=== PATIENT | male | born 1955 | race Caucasian/White ===

== ENCOUNTER 2018-03-17 10:14 | Inpatient (IN) | payer MEDICARE ==
[~2018-03-17] VITALS: Ht 175.3 cm; Wt 75.0 kg
[~2018-03-17 10:14] MED LIST: AXIRON30 MG/1.5 IM; AXIRON30 MG/1.5 TP; CALTRATE-600600 MG PO; CYCLOBENZAPRINE10 MG PO; DILAUDID2 MG PO; XANAX0.5 MG PO; ZOFRAN4 MG PO
[2018-03-17 11:50] LABS: APPEARANCE CLEAR (CLEAR); BILIRUBIN NEGATIVE (NEGATIVE); COLOR STRAW (YELLOW); GLUCOSE NEGATIVE (NEGATIVE); KETONE NEGATIVE (NEGATIVE); NITRITE POSITIVE (NEGATIVE); PROTEIN NEGATIVE (NEGATIVE); UROBILINOGEN NORMAL (NORMAL)
[2018-03-17 11:51] LABS: BASOPHILS 0.1 % (0-2); EOSINOPHILS 0 % (0-7); HEMATOCRIT 51.5 % (42.0-54.0); HEMOGLOBIN 17.9 g/dL (13.5-17.5); IMMATURE GRANULOCYTES 0.1 % (0-5); LYMPHOCYTES 4.1 % (15-50); MCHC 34.8 g/dL (31.0-37.0); MCV 92.1 fL (80.0-100.0); MEAN PLATELET VOLUME 10.5 fL (7.4-10.4); MONOCYTES 3.9 % (2-11); NEUTROPHILS 91.8 % (40-80); PLATELET COUNT 189 10x3/uL (130-400); RBC 5.59 10x6/uL (4.20-6.10); RDW 14.3 % (11.5-14.5); WBC 14.1 10x3/uL (4.8-10.8)
[2018-03-17 11:52] LABS: BACTERIA MODERATE /hpf (NONE SEEN); EPITHELIAL CELLS 0-5 /hpf (0-5); RED CELLS - URINE 0-5 /hpf (0-5)
[2018-03-17 12:06] LABS: ALBUMIN 4.2 g/dL (3.4-5.0); ALKALINE PHOSPHATASE 55 U/L (46-116); ALT (SGPT) 26 U/L (10-68); BILIRUBIN - TOTAL 1.68 mg/dL (0.2-1.3); CALC OSMOLALITY 279 mosm/kg (275-300); CALCIUM 9.5 mg/dL (8.5-10.1); CHLORIDE - SERUM 103 mmol/L (98-107); CREATININE - SERUM 1.1 mg/dL (0.6-1.3); GLUCOSE 116 mg/dL (74-106); POTASSIUM - SERUM 3.6 mmol/L (3.5-5.1); PROTEIN - SERUM 7.4 g/dL (6.4-8.2); SODIUM 139 mmol/L (136-145); UREA NITROGEN 16 mg/dL (7-18); eGFR NON AFRICAN AMERICAN 72 mL/min (90-120)
[2018-03-17 12:10] LABS: AMYLASE - SERUM 65 U/L (25-115); LIPASE 146 U/L (73-393)
[2018-03-17 12:11] LABS: TROPONIN-I < 0.017 ng/mL (0.000-0.060)
[2018-03-17 15:44] VITALS: BP 116/74
[2018-03-17 16:05] VITALS: Ht 175.3 cm; Wt 75.0 kg
--- NOTE | 2018-03-17 19:35 | NUR ---
BLADDER SCAN PERFORMED ON PATIENT DUE TO COMPLAINT OF NEEDING TO URINATE AND UNABLE TO PASS ANYTHING EXCEPT SMALL DROPS OF BLOOD. DR SENIOR CONTACTED, ORDER RECEIVED TO PERFORM INDWELLING URINARY CATHETERIZATION AND HAVE PATIENT RETURN TO OFFICE NEXT WEEK TO REMOVE
--- NOTE | 2018-03-17 20:25 | NUR ---
18 SYRIAC URINARY CATHETER INSERTED WITHOUT DIFFICULTY. ASSISTANCE WAS PROVIDED BY DEISY SANTANA RN TO ENSURE THAT URETERAL STENT STRING REMAINS IN PLACE. APPROX 350 CC DARK PINK URINE DRAINING IN BAG. NO CLOTS SEEN.
--- NOTE | 2018-03-17 20:55 | NUR ---
PATIENT DISCHARGED HOME VIA WHEELCHAIR TO PRIVATE VEHICLE WITH FATHER
--- NOTE | 2018-03-20 11:27 | OP ---
PATIENT NAME: ELIZABETH ALVA MEDICAL RECORD: [id number] :53 LOCATION:[facility]- ADMISSION DATE:03/17/18 SURGEON: PRESTON SENIOR MD DATE OF OPERATION: 03/17/2018 SURGEON: Preston Senior MD ANESTHESIA: General anesthesia by Cipriano Roth CRNA DIAGNOSIS: A 6-mm left distal ureteral stone. PROCEDURES: Cystoscopy, left retrograde pyelogram, left ureteroscopy and stone extraction, left ureteral stent insertion 6-Filipino x 26 cm with string attached. FINDINGS: Radiolucent renal stones. ESTIMATED BLOOD LOSS: Minimal. SPECIMEN: Left ureteral stone. CLINICAL HISTORY: This is a 62-year-old male with a previous history of kidney stones. He had acute left flank pain last night and today he found the pain to be intolerable and he came to the Emergency Room. A CT scan shows a 6-mm left distal ureteral stone causing proximal hydroureteronephrosis. There is also bilateral punctate nonobstructive renal stones. Finally, there is a fairly large right renal stone. He comes now to have left ureteroscopy and stone extraction. HE HAS NUMEROUS ALLERGIES INCLUDING TO IVP DYE. He was given Levaquin IV lactation nurse to the OR. DESCRIPTION OF PROCEDURE: The patient was given induction of general anesthesia. He was then placed into dorsal lithotomy position and prepped and draped. Fluoroscopy did not reveal any visible radiodense stones. Therefore, I performed cystoscopy using a 21-Filipino cystoscope with 30-degree lens. There are no urethral strictures. Lateral lobes are not obstructive. He does have somewhat elevated bladder neck. Going into the bladder, he has single ureteral orifices bilaterally. No bladder tumors were seen. The left ureteral orifice was intubated with a 5-Filipino open-ended ureteral catheter. Diluted contrast was injected for the retrograde pyelogram. We saw the stone as a filling defect in the distal ureter. There is also a phlebolith in the pelvis, which is lateral to the ureter. A Sensor wire was then placed through the lumen of the ureteral catheter up into the renal pelvis. The ureteral catheter was then removed and we dilated the ureteral orifice with an 18-Filipino x 4-cm balloon up to 20 atmospheres of pressure. The pressure was maintained for only a few seconds and then the balloon was deflated. We then went in with the rigid ureteroscope and we identified the stone. The stone was trapped within a 4-wire 0-tip basket. We could not get the stone past the distal ureteral edema in the intramural ureter. In fact, the basket broke off in the attempts to do so. We then redilated the ureteral orifice and the distal ureter up to the point of the stone with the 18-Filipino basket and tried again and again we could not get past the tissue edema. Finally, I used a 21-Filipino balloon and dilated the ureter distal to the stone. Finally, a new 4-wire 0-tip basket was able to trap the stone and the retained basket fragment and we were able to remove everything in one shot. Repeat ureteroscopy showed no further stones. I went up to the mid ureter to check. We then removed the ureteroscope. The wire was backloaded into the cystoscope. Over the wire through the scope, we inserted the 6-Filipino OPERATIVE REPORT [id number] ELIZABETH ALVA x 26-cm ureteral stent. The bladder was then emptied through the scope. The scope was removed entirely. The string on the distal end of the scope was maintained. It hangs out of the urethra. It was tied to itself in a knot and cut shorter. The patient will be going home today with a prescription for [place]. I will see him in followup next week to remove the stent. TRANSINT:[id number] Voice Confirmation ID: [id number] DOCUMENT ID: [id number] PRESTON SENIOR MD at 1127 CC: [id number] DICTATION DATE: 03/17/181741 CORE DRILLING SUPERVISOR: 03/18/18 0039 [facility] IN 03/17/18 [id number] [place] [address]
== END 2018-03-17 20:55 | disposition home or self-care (01) | DRG 661 ==
LOC: D.ER 10:14 → D.EDHOLD 15:36 → D.SDCHOLD 15:36
PROVIDERS: Family Medicine; ADMIT Urology
PROC: 0T778DZ Dilation of Left Ureter with Intraluminal Device, Via Natural or Artificial Opening Endoscopic (ICD-10-PCS; principal; 2018-03-17 15:38)
PROC: 0TC78ZZ Extirpation of Matter from Left Ureter, Via Natural or Artificial Opening Endoscopic (ICD-10-PCS; 2018-03-17 15:38)
PROC: BT1F1ZZ Fluoroscopy of Left Kidney, Ureter and Bladder using Low Osmolar Contrast (ICD-10-PCS; 2018-03-17 15:38)
DX: N13.2 Hydronephrosis with renal and ureteral calculous obstruction (principal)

== ENCOUNTER → 2018-03-24 18:44 | Outpatient (CLI) | payer MEDICARE ==
[2018-03-17 16:05] VITALS: BMI 24.4
== END | disposition home or self-care (01) ==
LOC: D.LABREF 18:44
DX: D72.829 Elevated white blood cell count, unspecified (principal); R31.9 Hematuria, unspecified

== ENCOUNTER → 2018-04-18 10:26 | Outpatient (CLI) | payer MEDICARE ==
[2018-03-17 16:05] VITALS: BMI 24.4
[~2018-04-18 10:26] MED LIST changes: +FLOMAX0.4 MG PO; +TORADOL10 MG PO
== END | disposition home or self-care (01) ==
LOC: D.LAB 10:26
DX: E21.3 Hyperparathyroidism, unspecified (principal)

== ENCOUNTER 2018-04-27 07:40 | Day surgery (SDC) | payer MEDICARE ==
[2018-04-25 12:02] LABS: CALC OSMOLALITY 284 mosm/kg (275-300); CARBON DIOXIDE 30.3 mmol/L (21.0-32.0); CHLORIDE - SERUM 106 mmol/L (98-107); GLUCOSE 97 mg/dL (74-106); POTASSIUM - SERUM 3.9 mmol/L (3.5-5.1); SODIUM 143 mmol/L (136-145); UREA NITROGEN 13 mg/dL (7-18); eGFR NON AFRICAN AMERICAN 80 mL/min (90-120)
[2018-04-25 12:03] LABS: BASOPHILS 0.5 % (0-2); EOSINOPHILS 0.9 % (0-7); HEMATOCRIT 49.8 % (42.0-54.0); HEMOGLOBIN 17.3 g/dL (13.5-17.5); IMMATURE GRANULOCYTES 0.2 % (0-5); LYMPHOCYTES 28.2 % (15-50); MCH 31.9 pg (26.0-34.0); MCHC 34.7 g/dL (31.0-37.0); MCV 91.9 fL (80.0-100.0); MEAN PLATELET VOLUME 10.5 fL (7.4-10.4); MONOCYTES 8.4 % (2-11); NEUTROPHILS 61.8 % (40-80); PLATELET COUNT 185 10x3/uL (130-400); RBC 5.42 10x6/uL (4.20-6.10); RDW 14.2 % (11.5-14.5); WBC 6.3 10x3/uL (4.8-10.8)
[2018-04-25 12:15] LABS: INR 1.07 (0.85-1.17); PROTIME 13.4 SECONDS (11.6-15.0)
[~2018-04-27] VITALS: Ht 175.3 cm; Wt 75.0 kg
[~2018-04-27 07:40] MED LIST changes: -TORADOL10 MG PO
[2018-04-27 08:22] VITALS: BP 120/71; BMI 24.2
--- NOTE | 2018-04-27 11:25 | NUR ---
REC'D FROM . NO FAMILY AT BEDSIDE. REMAINS NPO FOR LITHO PROCEDURE.
--- NOTE | 2018-04-27 12:00 | NUR ---
UP TO BATHROOM AND VOIDED HOWEVER RELATES IT FEELS LIKE HE STILL NEEDS TO GO MORE. ASKING FOR A CATHETER. EXPLAINED HE IS ABOUT TO GO FOR HIS LITHO PROCEDURE HOWEVER IS STILL WANTING A ROMERO. SPOKE WITH DR SENIOR AND ORDER RECEIVED.
--- NOTE | 2018-04-27 12:07 | OP ---
PATIENT NAME: ELIZABETH ALVA MEDICAL RECORD: [id number] :53 LOCATION:[facility] ADMISSION DATE: SURGEON: ESPERANZA SENIOR MD DATE OF OPERATION: 04/27/2018 SURGEON: Esperanza Senior MD ANESTHESIA: General anesthesia by Beka Moody CRNA. DIAGNOSIS: Right renal stone about 6-mm in the mid pole. PROCEDURE: Cystoscopy, right retrograde pyelogram, right ureteral stent insertion 6-Guatemalan x 24 cm with string attached. FINDINGS: Single ureteral orifices bilaterally. No bladder tumors. Right renal stone is difficult to see on fluoroscopy. On right retrograde pyelogram, it is difficult to see a filling defect. No hydronephrosis. ESTIMATED BLOOD LOSS: None. CLINICAL HISTORY: This is a 62-year-old male with a history of bilateral kidney stones. For the left side, he had cystoscopy, left ureteroscopy and stone extraction. The stones are difficult to see on our fluoroscopic machine. I had put him on potassium citrate to possibly dissolve a uric acid stone. However, his stone analysis came back as 65% calcium phosphate and 35% calcium oxalate. He still has a large stone in the right kidney, which is visible on the CT scan. He comes today to have a right ureteral stent inserted and then he will have right ESWL. HE IS ALLERGIC TO HYDROCODONE, ILOSONE, IODINATED CONTRAST, NUBAIN, PENICILLIN, AND VICODIN. He was given Levaquin IV client relations specialist to the OR. DESCRIPTION OF PROCEDURE: The patient was given induction of general anesthesia. He was then placed into dorsal lithotomy position and prepped and draped. Fluoroscopy could not find a visible stone. However, our equipment often does not find a radiodense stone, which is seen later on the fluoroscopic unit of the lithotripsy machine. Therefore, I injected contrast in the right ureter for retrograde pyelogram using an open-ended 5-Guatemalan ureteral catheter. Again, I could not see the stone as a filling defect in the kidney. There was no hydronephrosis in the ureter. Through the lumen of the ureteral catheter, a Sensor wire was placed into the renal pelvis. We then removed the ureteral catheter, leaving the wire in place. Over the wire, we inserted the 6-Guatemalan x 24-cm ureteral stent. Once the stent was in correct position, the wire was withdrawn entirely. The distal end of the stent was pushed into the bladder using a pusher. The bladder was then emptied through the cystoscope sheath and the sheath was removed. The string from the distal end of the stent is maintained. It was tied to itself in a knot and cut shorter. It hangs out of the urethra. The patient was then awakened and brought back to the preoperative holding area. Later today, we will put him on the lithotripsy unit for ESWL. TRANSINT:[id number] Voice Confirmation ID: [id number] DOCUMENT ID: [id number] OPERATIVE REPORT [id number] ELIZABETH ALVA, ESPERANZA Harrington MD at 1207 CC: [id number] DICTATION DATE: 04/27/18 1102 THERAPEUTIC MASSAGE TECHNICIAN: 04/27/18 1134 [facility] [address] [place] [address]
--- NOTE | 2018-04-27 12:34 | NUR ---
PT WANTED LIDOCAINE USED FOR INSERTION OF ROMERO CATHETER. ORDER FOR UROJECT RECEIVED. LITHO STAFF HERE FOR PROCEDURE HOWEVER HAVE TO INSERT ROMERO CAHTETER FIRST. 16 [place] ROMERO CATHETER INSERTED USING STERILE TECHNIQUE WITH RETURN OF BLOOD TINGED URINE.
--- NOTE | 2018-04-27 12:45 | NUR ---
TAKEN TO LITHO PROCEDURE VIA WC.
--- NOTE | 2018-04-27 13:35 | NUR ---
REC'D FROM LITHO PROCEDURE VIA WC. ICE WATER GIVEN TO PT. DID NOT WANT ANYTHING TO EAT HOWEVER EXPLAINED HAS TO BE ABLE TO KEEP SOMETHING ON HIS STOMACH BEFORE DC.
--- NOTE | 2018-04-27 14:09 | NUR ---
C/O NAUSEA. ZOFRAN 4MG IV ADMINISTERED PER ORDERS.
--- NOTE | 2018-04-27 15:20 | NUR ---
TORADOL 10MG PO ADMINISTERED FOR C/O PAIN TO RIGHT YUE/GROIN AREA. FAMILY AT BEDSIDE.
--- NOTE | 2018-04-27 15:39 | OP ---
PATIENT NAME: ELIZABETH ALVA MEDICAL RECORD: [id number] :53 LOCATION:[facility] ADMISSION DATE: SURGEON: ESPERANZA SENIOR MD DATE OF OPERATION: 04/27/2018 SURGEON: Esperanza Senior MD ANESTHESIA: TIVA by Amina Bishop CRNA DIAGNOSIS: Right renal stone about 6 mm in size. PROCEDURE: Right ESWL times 3000 shocks. FINDINGS: Two radiodense stones are seen with a larger one being in the renal pelvis. This was treated at this time. There is a smaller one in the mid pole matthias. SPECIMENS: None. ESTIMATED BLOOD LOSS: None. CLINICAL HISTORY: This is a 62-year-old male, who has a history of bilateral renal stones, seen on CT scan. He had a left ureteroscopy and stone extraction to remove the left-sided stone. He still has right-sided stone, which we are treating today. A couple of issues which cropped up. His chest x-ray preoperatively shows lung nodule. We will schedule an outpatient CT scan of the chest to further investigate this. He is a nonsmoker. Secondly, he has issues with urinary retention after anesthesia. 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 He does not have an obstructive prostate. After the procedure earlier today, which was cystoscopy and right ureteral stent insertion, he claimed in the preoperative holding area that he could not void. Therefore, in order to allow him to stay still for the lithotripsy treatment, we inserted a Hernandez catheter. Bladder scanning prior to insertion of the catheter showed 0 mL PVR. It is not certain if he wants to go home with his catheter or not. Finally, he has numerous drug allergies. He was given Levaquin earlier today. He does not need any further antibiotic treatment. DESCRIPTION OF PROCEDURE: The patient was placed on the treatment table. The stone was localized in 2 planes, it was treated with 3000 shocks. It was finally seen to break up towards the end of the 3000 shocks. We will have to bring him back and obtain a KUB. We may have to schedule a repeat treatment for the remaining right renal stone. TRANSINT:[id number] Voice Confirmation ID: [id number] DOCUMENT ID: [id number] ESPERANZA SENIOR MD at 5324 CC: [id number] DICTATION DATE: 04/27/18 1692 ESTHETICIAN/SPA COORDINATOR: 04/27/[address] [facility] [address] [place] [id number]
--- NOTE | 2018-04-27 16:05 | NUR ---
CONTINUES TO C/O PAIN 10/14. DR SENIOR IN SURGERY CASE HOWEVER FINALLY GOT AN ORDER FOR MORPHINE 2MG IM X ONE.
--- NOTE | 2018-04-27 16:28 | NUR ---
MORPHINE 2 MG ADMINISTERED IM FOR PAIN 10/05O PER ORDERS. FATHER AND SON CONTINUE TO HAVE QUESTIONS TO WHY THERE IS PAIN AND WHAT TO DO IF HE GOES HOME LIKE THIS.
--- NOTE | 2018-04-27 16:40 | NUR ---
ROMERO CATHETER ATTACHED TO LEG BAG.
--- NOTE | 2018-04-27 17:15 | NUR ---
RELATES PAIN IS STILL A 6-7 AFTER MORPHINE. RELATES HE THINKS HE WILL JUST LAY HERE AND TALK WITH DR SENIOR WHEN HE FINISHES HIS LAST CASE. PATIENT'S DAD WENT HOME TO CHECK ON HIS .
--- NOTE | 2018-04-27 18:00 | NUR ---
SPOKE WITH DR SENIOR ABOUT PATIENT'S C/O OF PAIN AND WANTING TO TALK WITH HIM AND DR SENIOR ORDERED FOR PATIENT TO BE ADMITTED TO OBSERVATION.
--- NOTE | 2018-04-27 18:10 | NUR ---
SPOKE WITH INDUSTRIAL CUSTODIAN REGARDING NEEDING A BED FOR ADMISSION OF PATIENT.
--- NOTE | 2018-04-27 19:01 | NUR ---
IV SITED TO RIGHT WRIST WITH 22 GAUGE CATHETER. NS TO RUN AT [facility].
--- NOTE | 2018-04-27 19:02 | NUR ---
REPORT CALLED TO ADRIÁN GARNER RN.
--- NOTE | 2018-04-27 19:11 | NUR ---
REGULAR TRAY SERVED TO PT.
--- NOTE | 2018-04-27 19:30 | NUR ---
TRANSFERRING TO ROOM 2208 VIA .
[2018-04-28 05:29] VITALS: BP 140/84; Ht 175.3 cm; Wt 75.0 kg
--- NOTE | 2018-04-28 06:32 | NUR ---
PT IN BED IN LOW FOWLERS POSITION. ALERT AND ORIENTED X4. RESPIRATIONS EVEN AND UNLABORED. VITAL SIGNS STABLE AND AFEBRILE. NO VISUAL CUES OF DISTRESS NOTED. DENIES ANY OTHER NEEDS AT THIS TIME. BED LOW, SIDE RAILS UP X2. CALL LIGHT IN REACH. WILL CONTINUE TO MONITOR.
--- NOTE | 2018-04-28 08:55 | NUR ---
PT RESTING IN BED. NO ACUTE DISTRESS NOTED. DENIES PAIN AT THIS TIME. IV TO RIGHT WRIST WITH NS @ KVO INFUSING VIA PUMP. SITE WITHOUT REDNESS OR EDEMA. F/C PATENT TO GRAVITY DRAINING BLOOD TINGED BLOOD. DENIES FURTHER NEEDS AT THIS TIME. CL WITHIN REACH. ENCOURAGED TO CALL WITH NEEDS. CONTINUE POC
--- NOTE | 2018-04-28 09:00 | NUR ---
PT F/C DISCONTINUED PER MD ORDERS. 10CC REMOVED FROM BULB TIP INTACT. PT CRESENCIO WELL
[2018-04-28 09:13] VITALS: BP 119/75
[2018-04-28] MEDS ORDERED: TORADOL10 MG PO (09:53)
--- NOTE | 2018-04-28 10:15 | NUR ---
PT VOIDED 500CC BLOOD TINGED URINE. DENIES PAIN AT THIS TIME. WILL CONTINUE TO MONITOR.
--- NOTE | 2018-04-28 12:17 | NUR ---
PT GIVEN DISCHARGE INSTRUCTIONS WITH PRESCRIPTIONS. DISCUSSED FOLLOW UP APPOINTMENTS, S/S TO MONITOR FOR POST PROCEDURE. PRESCRIPTION GIVEN. DENIES QUESTIONS AT THIS TIME. IV D/C'D FROM RIGHT WRIST, TIP INTACT. PT TAKEN OUT TO PRIVATE VEHICLE WITH ALL PERSONAL BELONGINGS VIA W/C.
== END 2018-04-28 12:17 | disposition home or self-care (01) ==
LOC: D.MS 07:40 → D.OPS 07:40 → D.PAN 12:00 → D.OPS 12:00 → D.PAN 14:15 → D.MS 19:30 → D.OPS 04-28 12:17
PROVIDERS: Anesthesiology
DX: N20.0 Calculus of kidney (principal); Z88.5 Allergy status to narcotic agent; Z88.0 Allergy status to penicillin; Z91.041 Radiographic dye allergy status; Z01.812 Encounter for preprocedural laboratory examination

== ENCOUNTER → 2018-05-09 13:27 | Outpatient (CLI) | payer MEDICARE ==
[2018-04-28 05:29] VITALS: BMI 24.4
[~2018-05-09 13:27] MED LIST changes: +TORADOL10 MG PO
== END | disposition home or self-care (01) ==
LOC: D.CT 08:00
PROVIDERS: ATTEND Urology
DX: R91.8 Other nonspecific abnormal finding of lung field (principal)

== ENCOUNTER → 2018-05-11 10:32 | Outpatient (CLI) | payer MEDICARE ==
[2018-04-28 05:29] VITALS: BMI 24.4
== END | disposition home or self-care (01) ==
LOC: D.RAD 10:32
PROVIDERS: ATTEND Urology
DX: N20.0 Calculus of kidney (principal)

== ENCOUNTER 2018-06-22 09:35 | Day surgery (SDC) | payer MEDICARE ==
[~2018-06-22] VITALS: Ht 175.3 cm; Wt 75.0 kg
[2018-06-22 11:07] VITALS: BP 128/81; Ht 175.3 cm; Wt 75.0 kg
--- NOTE | 2018-06-22 14:40 | NUR ---
REC'D FROM LITHOTRIPSY PROCEDURE VIA WC. [facility] PT TRANSFERRED TO BED. C/O NAUSEA.
--- NOTE | 2018-06-22 15:03 | NUR ---
ZOFRAN 4MG IV ADMINISTERED X1 PER ORDERS.
--- NOTE | 2018-06-22 15:10 | NUR ---
ICE CHIPS BROUGHT TO PATIENT.
--- NOTE | 2018-06-22 15:30 | NUR ---
REGULAR TRAY BROUGHT TO PT. DID NOT WANT THE TRAY RELATING SINCE HE WAS NAUSEATED HE DIDN'T THINK HE NEEDED THAT. OFFERED PATIENT PUDDING, ICE CREAM, JELLO OR APPLE SAUCE. RELATED HE WOULD TRY SOME PUDDING.
--- NOTE | 2018-06-22 16:00 | NUR ---
HAD AN EPISODE OF VOMITING A SCANT AMOUNT OF LIQUID EMESIS. RELATES HE MUST HAVE DRANKED HIS FLUIDS TO FAST. WAS FEELING ALRIGHT NOW.
--- NOTE | 2018-06-22 16:20 | NUR ---
UP TO BATHROOM AND VOIDED WITHOUT DIFFICULTY. NO FURTHER C/O NAUSEA AND NO EPISODES OF VOMITING.
--- NOTE | 2018-06-22 16:30 | NUR ---
IV DC'D WITH CATHETER INTACT. CALLED HIS TRANSPORTATION AND LET THEM KNOW PATIENT WAS GETTING READY FOR DC.
--- NOTE | 2018-06-22 16:40 | NUR ---
WRITTEN AND VERBAL DC INST. GIVEN TO PATIENT ALONG WITH RX. VERBALIZED UNDERSTANDING.
--- NOTE | 2018-06-22 17:15 | NUR ---
TANSPORTATION IS HERE FOR PATIENT. DC'D HOME WITH FAMILY VIA PRIVATE VEHICLE. TAKEN TO VEHICLE VIA WC. STABLE AT TIME OF DC,
--- NOTE | 2018-06-23 08:44 | OP ---
PATIENT NAME: ELIZABETH ALVA MEDICAL RECORD: [id number] :53 LOCATION:[facility] ADMISSION DATE: SURGEON: ESPERANZA SENIOR MD DATE OF OPERATION: 06/22/2018 SURGEON: Esperanza Senior MD ANESTHESIA: TIVA by Amina Bishop CRNA DIAGNOSIS: Right renal stones, 2 x 3 mm stone. FINDINGS: Radiodense stones. PROCEDURE: Right ESWL times 3000 shocks. BLOOD LOSS: None. CLINICAL HISTORY: This is a 62-year-old male with right-sided kidney stones. He had a right ureteral stent inserted and previously he had right ESWL of the largest stone, which then was 7 mm. On followup KUB he has two 3 mm stone fragments left. One is within the coil of the right ureteral stent. The other stone is in the mid pole lateral matthias. He comes today to have both these stones treated. HE IS ALLERGIC TO MULTIPLE MEDICATIONS, ESPECIALLY PAIN MEDICATIONS. He is able to tolerate Demerol and he can tolerate gentamicin. We gave him gentamicin IV ultrasonic tester to the OR. DESCRIPTION OF PROCEDURE: The patient was placed on the treatment table. The stones were identified by fluoroscopy in 2 dimensions. Each stone was targeted individually and each stone was given 1500 shocks. The stones were seen to break up. I will see him in followup in 2 weeks' time with a KUB. If at that time stones are entirely gone, then the stent will be removed. TRANSINT:[id number] Voice Confirmation ID: [id number] DOCUMENT ID: [id number] ESPERANZA SENIOR MD at 0844 CC: [id number] DICTATION DATE: 06/22/18 1445 OCULAR PATHOLOGIST: 06/22/18 1610 [facility] 06/22/18 [facility] [address] [place] [address]
== END 2018-06-22 17:15 | disposition home or self-care (01) ==
LOC: D.OPS 09:35
PROVIDERS: ATTEND Urology
DX: N20.0 Calculus of kidney (principal)

== ENCOUNTER → 2018-07-07 12:43 | Outpatient (CLI) | payer MEDICARE ==
[2018-06-22 11:07] VITALS: BMI 24.4
== END | disposition home or self-care (01) ==
LOC: D.RAD 08:30
PROVIDERS: ATTEND Urology
DX: N20.0 Calculus of kidney (principal)